=== PATIENT | male | born 1970 | race Asian ===

== ENCOUNTER 2019-08-03 18:48 | Emergency (ER) | payer MEDICAID ==
[~2019-08-03] VITALS: Ht 177.8 cm; Wt 77.1 kg
[2019-08-03 19:05] VITALS: Ht 177.8 cm; Wt 77.1 kg
[2019-08-03 19:55] LABS: BASOPHIL % 0.5 % (0-2); PLATELET COUNT 157 x10^3mcL (130-400); RED CELL DISTRIBUTION WIDTH 13.4 % (11.5-14.5)
[2019-08-03 20:06] LABS: CALCIUM 8.3 mg/dL (8.5-10.1); CARBON DIOXIDE 30.3 mmol/L (21-32); CHLORIDE SERUM 104 mmol/L (98-107); CREATININE SERUM 0.9 mg/dL (0.7-1.3); GFR1 > 60 mL/min; GLUCOSE SERUM 92 mg/dL (74-106); POTASSIUM SERUM 3.7 mmol/L (3.5-5.1); SODIUM SERUM 139 mmol/L (136-145)
[2019-08-03 20:08] LABS: ALBUMIN 3.4 g/dL (3.4-5.0); ALKALINE PHOSPHATASE 59 U/L (46-116); ALT/SGPT 41 U/L (16-63); AST/SGOT 40 U/L (15-37); BILIRUBIN TOTAL 0.43 mg/dL (0.20-1.00); TOTAL PROTEIN, SERUM 7.6 g/dL (6.4-8.2)
[2019-08-03 21:04] VITALS: BP 125/79
== END 2019-08-03 21:04 | disposition home or self-care (01) ==
LOC: ED 18:48
DX: R07.89 Other chest pain (principal); R05 Cough; R06.02 Shortness of breath; I10 Essential (primary) hypertension